=== PATIENT | female | born 1975 | race Caucasian/White ===

== ENCOUNTER 2017-07-23 10:29 | Emergency (ER) | payer MEDICAID, OTHER ==
[~2017-07-23] VITALS: Ht 167.6 cm; Wt 47.7 kg
[2017-07-23 12:31] LABS: BLOOD UREA NITROGEN 2 mg/dL (7-18)
[2017-07-23 12:34] LABS: HEMOGLOBIN 13.2 g/dL (11.7-16.4); WHITE BLOOD COUNT 5.5 x10^3/uL (3.4-10)
[2017-07-23 12:35] LABS: ASPARTATE AMINO TRANSFERASE 89 U/L (15-37)
[2017-07-23] MEDS ORDERED: KETOROLAC 30 MG/1 ML ONE (12:48)
[2017-07-23] MEDS ORDERED: CEFTRIAXONE PMX 1GM/50ML 50 ML ONE (12:50)
[2017-07-23] MEDS ORDERED: KETOROLAC 30 MG/1 ML IVPush ONE (13:00)
[2017-07-23] MEDS ORDERED: CEFTRIAXONE PMX 1GM/50ML 50 ML IVPB ONE (13:00)
[2017-07-23 13:02] VITALS: BP 123/85
[2017-07-23] MEDS ORDERED: SODIUM CHLORIDE FLUSH 10ML SYR IVF ONE (13:30)
== END 2017-07-23 14:06 | disposition home or self-care (01) ==
LOC: ED 11:45
DX: N30.00 Acute cystitis without hematuria (principal); Z88.1 Allergy status to other antibiotic agents; K70.30 Alcoholic cirrhosis of liver without ascites
CPT/HCPCS: 36415; 76700; 80053; 81001; 83690; 85025; 87077; 87086; 87186; 96365; 96366; 96375; 99285; J0696; J1885